=== PATIENT | female | born 1950 | race Asian ===

== ENCOUNTER 2019-01-14 17:37 | Emergency (ER) | payer OTHER ==
[~2019-01-14] VITALS: Ht 152.4 cm; Wt 59.9 kg
[2019-01-14 17:41] VITALS: Ht 152.4 cm; Wt 59.9 kg
--- NOTE | 2019-01-14 18:52 | ERD ---
ER Documentation Chief Complaint Chief Complaint cough for 12 days HPI 68-year-old female with a history of hypertension presenting with cough for the past 12 days. Cough is productive of yellow and white sputum. Her symptoms have been continuous, not improving as expected. She never had URI symptoms associated with her cough. No fevers or chills. No vomiting or diarrhea. Denies any associated chest pain. At times she gets short of breath when she has a coughing fit, but otherwise she is not short of breath. She denies any recent travel, immobilization, recent surgeries. Denies any unusual exposures. ROS All systems reviewed and are negative except as per history of present illness. Medications Home Meds Active Scripts Benzonatate* (Tessalon Perle*) 100 Mg Capsule, 100 MG PO Q8H PRN for COUGH, #30 CAP Prov:EVY RIDDLE MD 01/14/19 Allergies Allergies: Coded Allergies: Penicillins (Verified Allergy, Unknown, 01/14/19) PMhx/Soc Medical and Surgical Hx: pt denies Surgical Hx Hx Cardiac Disorders: Yes (htn, hyperlipidemia ) Hx Alcohol Use: No Hx Substance Use: No Hx Tobacco Use: No Smoking Status: Never smoker FmHx Family History: No diabetes, No coronary disease Physical Exam Vitals Vital Signs Date Temp Pulse Resp B/P (MAP) Pulse Ox O2 O2 Flow FiO2 Time Delivery Rate 01/14/19 80 18 213/90 100 Room Air 20:29 (131) 01/14/19 97.9 94 18 213/94 100 Room Air 18:42 (133) 01/14/19 97.9 90 18 229/100 96 17:41 (143) Physical Exam Const: No acute distress Head: Atraumatic Eyes: Normal Conjunctiva ENT: Normal External Ears, Nose and Mouth. Neck: Full range of motion. No meningismus. Resp: No retractions or respiratory distress. Clear to auscultation bilaterally without wheezing, rales, or rhonchi Cardio: Regular rate and rhythm, no murmurs Abd: Soft, non tender, non distended. Normal bowel sounds Skin: No petechiae or rashes Back: No midline or flank tenderness Ext: No cyanosis, or edema Neur: Awake and alert Psych: Normal Mood and Affect Result Diagram: 01/14/19190001/14/191900 Results 24 hrs Laboratory Tests Test 01/14/19 19:01 White Blood Count 6.9 10^3/ul Red Blood Count 4.47 10^6/ul Hemoglobin 12.6 g/dl Hematocrit 38.6 % Mean Corpuscular Volume 86.4 fl Mean Corpuscular Hemoglobin 28.2 pg Mean Corpuscular Hemoglobin Concent 32.6 g/dl Red Cell Distribution Width 11.3 % Platelet Count 278 10^3/UL Mean Platelet Volume 8.2 fl Immature Granulocytes % 0.900 % Neutrophils % 69.6 % Lymphocytes % 17.8 % Monocytes % 9.4 % Eosinophils % 1.9 % Basophils % 0.4 % Nucleated Red Blood Cells % 0.0 /100WBC Immature Granulocytes # 0.060 10^3/ul Neutrophils # 4.8 10^3/ul Lymphocytes # 1.2 10^3/ul Monocytes # 0.7 10^3/ul Eosinophils # 0.1 10^3/ul Basophils # 0.0 10^3/ul Nucleated Red Blood Cells # 0.0 10^3/ul Sodium Level 142 mmol/L Potassium Level 3.7 mmol/L Chloride Level 102 mmol/L Carbon Dioxide Level 30 mmol/L Anion Gap 10 Blood Urea Nitrogen 14 mg/dl Creatinine 0.75 mg/dl Est Glomerular Filtrat Rate mL/min > 60 mL/min Glucose Level 121 mg/dl Calcium Level 10.3 mg/dl B-Type Natriuretic Peptide 167 PG/ML Current Medications Medications Dose Sig/Olga Start Time Status Last (Trade) Ordered Route PRN Stop Time Admin Dose Reason Admin Nicardipine 30 mg ONCE ONCE 01/14/19 DC 01/14/19 HCl PO 20:30 20:25 (Cardene) 01/14/19 20:30 Procedures/MDM EMERGENT LABS AND DIAGNOSTIC STUDIES: Lab Results above were reviewed and interpreted by me. CBC: no anemia or evidence of infection BMP: No e/o clinically significant electrolyte abnormality severe acidosis, alkalosis, renal failure, diabetic ketoacidosis 12-lead EKG was interpreted by Clara Riddle MD: Normal Sinus Rhythm Normal axis Normal intervals No acute ST or T wave changes suggestive of acute ischemia or STEMI. Radiology Results as interpreted by Radiology below were reviewed by Thomas Riddle MD: Chest x-ray shows no acute abnormalities Initial Nursing notes reviewed. Previous Medical Records requested via the Electronic Health Record. EMERGENCY DEPARTMENT COURSE / MEDICAL DECISION MAKING: Patient presents with cough of unknown etiology for the past 12 days. Vitals are notable for hypertension but she is afebrile with normal oxygen saturations on room air. Exam was unremarkable. She was treated with Cardene for her hypertension. Chest x-ray does not show any acute abnormalities. I do not suspect PE, CHF, pneumonia, bronchitis. I recommended follow-up with her primary care doctor if her cough continues. Tessalon Perles prescription was given. Return precautions discussed. Patient's blood pressure was elevated (>120/80) but appears stable without evidence of hypertensive emergency or urgency. The patient was counseled about the risks of hypertension and urged to pursue outpatient monitoring and therapy within a week with their primary care physician. Departure Diagnosis: Primary Impression: Cough Additional Impression: Asymptomatic hypertension Condition: Stable EVY RIDDLE MD Jan 14, 2019 18:52
[2019-01-14] MEDS ORDERED: BENZ-6 PO (20:14)
[2019-01-14 20:29] VITALS: BP 213/90; PULSE 80; RESP 18
[2019-01-14] MEDS ORDERED: NICARDipine HCL 30 MG CAPSULE PO ONE (20:30)
== END 2019-01-14 20:29 | disposition home or self-care (01) ==
LOC: E/R 17:37
DX: R05 Cough (principal); I10 Essential (primary) hypertension
CPT/HCPCS: 36415; 71045; 80048; 83880; 85025; 93005; Z7502; Z7610